=== PATIENT | male | born 1960 | race Caucasian/White ===

== ENCOUNTER 2017-04-18 07:46 | Day surgery (SDC) | payer OTHER ==
[~2017-04-18 07:46] MED LIST: CEFAZOLIN 2 GM/50 ML (PMX) 50 ML IVPB
[2017-04-18] MEDS ORDERED: CEFAZOLIN 1 GM INJ (09:58)
[2017-04-18] MEDS ORDERED: MIDAZOLAM 1 MG/ML 2 ML INJ (09:58)
[2017-04-18] MEDS ORDERED: PROPOFOL 20 ML (09:58)
[2017-04-18] MEDS ORDERED: FENTAnyl 50 MCG/ML VIAL (09:58)
[2017-04-18] MEDS ORDERED: EPHEDrine SULFATE 50 MG/5 ML SYG IV (10:00)
[2017-04-18] MEDS ORDERED: HYDROmorphONE (0.2 MG/ML) 10ML SYG IV ×2 (10:00)
[2017-04-18] MEDS ORDERED: DIPHENHYDRAMINE 50 MG INJ IV (10:00)
[2017-04-18] MEDS ORDERED: MEPERIDINE 25 MG INJ IV (10:00)
[2017-04-18] MEDS ORDERED: OXYCODONE/ACETAMINOPHEN (5/325) TAB PO (10:00)
[2017-04-18] MEDS ORDERED: ROCURONIUM 50 MG INJ (10:00)
[2017-04-18] MEDS ORDERED: ONDANSETRON 4 MG INJ IV (10:00)
[2017-04-18] MEDS ORDERED: LABETALOL HCL 20MG INJ IV (10:00)
[2017-04-18] MEDS ORDERED: METOCLOPRAMIDE 10 MG INJ IV (10:00)
[2017-04-18] MEDS ORDERED: FENTAnyl 50 MCG/ML VIAL IV ×3 (10:00)
[2017-04-18] MEDS ORDERED: BUPIVACAINE 0.5% (SDV) 30 ML INJ (11:03)
[2017-04-18] MEDS: BUPIVACAINE 0.5% (MPF) 30 ML INJ INJ (11:09)
[2017-04-18] MEDS ORDERED: METOCLOPRAMIDE 10 MG INJ (11:19)
[2017-04-18] MEDS ORDERED: ONDANSETRON 4 MG INJ (11:19)
[2017-04-18] MEDS ORDERED: KETOROLAC 30 MG INJ (11:19)
[2017-04-18] MEDS ORDERED: DEXAMETHASONE 4 MG/ML 1 ML INJ (11:19)
[2017-04-18] MEDS ORDERED: NEOSTIGMINE 3 MG/3 ML SYRINGE (11:46)
[2017-04-18] MEDS ORDERED: GLYCOPYRROLATE 0.4 MG INJ (11:46)
[2017-04-18] MEDS ORDERED: SUGAMMADEX SODIUM 200 MG/2 ML VIAL IV (12:05)
[2017-04-18] MEDS: hydrALAzine 20 MG INJ IV (12:06)
[2017-04-18] MEDS: HYDROmorphONE (0.2 MG/ML) 10ML SYG IV (12:39)
== END 2017-04-18 13:52 | disposition home or self-care (01) ==
LOC: SDS 07:46
DX: N43.3 Hydrocele, unspecified (principal); N43.40 Spermatocele of epididymis, unspecified
CPT/HCPCS: 55500; 88305